=== PATIENT | male | born 1965 | race Caucasian/White ===

== ENCOUNTER → 2018-09-20 | Outpatient (CLI) | payer OTHER | END | disposition home or self-care (01) | LOC: CFH 07:58 | PROVIDERS: ATTEND Nurse Practitioner Family | DX: N50.3 Cyst of epididymis (principal); I86.1 Scrotal varices; R22.1 Localized swelling, mass and lump, neck; R22.2 Localized swelling, mass and lump, trunk | CPT/HCPCS: 70490; 76705; 76870 ==

== ENCOUNTER 2020-05-20 09:51 | Emergency (ER) | payer OTHER ==
[~2020-05-20] VITALS: Ht 180.3 cm; Wt 95.0 kg
--- NOTE | 2020-05-20 10:00 | NUR ---
PROVIDER AT BEDSIDE FOR ASSESSMENT. PLAN OF CARE DISCUSSED. QUESTIONS ANSWERED.
--- NOTE | 2020-05-20 10:05 | NUR ---
PT COMES IN TODAY C/O LEFT CHEST PAIN WITH "SQUEEZING DOWN MY LEFT ARM" THAT HE DISCRIBES 3/10 ON THE PAIN SCALE. PT STATES THIS STARTED AT APPROX. 0730 TODAY. PT STATES RECENT "HIGH BLOOD PRESSURE AND HIGH HEART RATE". PT STATES HE LOST HIS SENSE OF TASTE AND SMELL LAST WEDNESDAY, WAS TESTED FOR COVID AND WAS TOLD HE WAS NEGATIVE. MONITORS CONNECTED. CALL LIGHT W/IN REACH.
[2020-05-20] MEDS ORDERED: ONDANSETRON 2MG/ML, 2ML ONE (10:26)
[2020-05-20] MEDS ORDERED: LORazepam 2 MG/ML, 1ML ONE (10:26)
[2020-05-20] MEDS ORDERED: LORazepam 2 MG/ML, 1ML IVPush ONE (10:30)
[2020-05-20] MEDS ORDERED: SODIUM CHLORIDE FLUSH 10ML SYR IVF ONE (10:30)
[2020-05-20] MEDS ORDERED: SODIUM CHLORIDE 0.9% 1,000ML IVBOLUS ONE (10:30)
[2020-05-20] MEDS ORDERED: ONDANSETRON 2MG/ML, 2ML IVPush ONE (10:30)
--- NOTE | 2020-05-20 10:46 | NUR ---
IV PLACED. ORDERED MEDICATIONS ADMINISTERED AND INFUSING. LABS COLLECTED. XRAY AT BEDSIDE. COVID SWAB PERFORMED BY PROVIDER
[2020-05-20 11:07] LABS: ALANINE AMINOTRANSFERASE 84 U/L (12-78); ALBUMIN 3.7 g/dL (3.4-5.0); ANION GAP 10 mmol/L (5-15); CHLORIDE 103 mmol/L (98-107)
[2020-05-20 11:09] LABS: BASOPHILS % (AUTO) 1 % (0-1); EOSINOPHILS % (AUTO) 2 % (1-7); LYMPHOCYTES % (AUTO) 16 % (22-44); MEAN CORPUSCULAR HEMOGLOBIN 34.1 pg (27.5-34.5); MEAN CORPUSCULAR HGB CONC 35.1 g/dL (33.2-36.2); MEAN PLATELET VOLUME 8.8 fL (7.4-10.4); MONOCYTES % (AUTO) 6 % (2-9); NEUTROPHILS % (AUTO) 75 % (42-75); PLATELET COUNT 157 x10^3/uL (130-400); RED BLOOD COUNT 4.64 x10^6/uL (4.38-5.82)
[2020-05-20 11:11] LABS: ALKALINE PHOSPHATASE 150 U/L (45-117); BILIRUBIN,TOTAL 2.5 mg/dL (0.2-1.0); MD NO; TROPONIN I < 0.015 ng/mL (0.000-0.045)
--- NOTE | 2020-05-20 11:48 | NUR ---
PT RESTING ON [place]. VSS. NAD. STATES NO PAIN AT THIS TIME. CALL LIGHT W/IN REACH.
[2020-05-20 12:18] VITALS: BP 130/80
--- NOTE | 2020-05-20 12:19 | NUR ---
PT RESTING ON GURNEY. PROVIDER AT BEDSIDE DISCUSSING RESULTS AND PLAN OF CARE. VSS. NAD. CALL LIGHT W/IN REACH
--- NOTE | 2020-05-20 13:00 | NUR ---
PT ABMULATED TO DISCHARGE WITH STEADY GAIT. PT ENCOURAGED TO FOLLOWUP DISCUSSED. PT EDUCATED TO RETURN TO THE ED WITH WORSENING SYMPTOMS. RX GIVEN TO PT.
== END 2020-05-20 13:04 | disposition home or self-care (01) ==
LOC: ED 12:50
DX: R07.89 Other chest pain (principal); B34.9 Viral infection, unspecified; Z20.822 Contact with and (suspected) exposure to COVID-19; F10.139 Alcohol abuse with withdrawal, unspecified; Y90.0 Blood alcohol level of less than 20 mg/100 ml; R00.0 Tachycardia, unspecified; R51.9 Headache, unspecified; R53.1 Weakness; R53.81 Other malaise; K21.9 Gastro-esophageal reflux disease without esophagitis; Z87.891 Personal history of nicotine dependence
CPT/HCPCS: 71045; 80053; 80320; 84443; 84484; 85025; 87635; 93005; 96361; 96374; 96375; 99285; J2060; J2405; J7030; G0480